=== PATIENT | female | born 1990 | race African-American/Black ===

== ENCOUNTER 2019-11-02 16:39 | Emergency (ER) | payer BC ==
[2019-11-02 16:52] VITALS: BP 144/72
[2019-11-02] MEDS ORDERED: LIDOCAINE 1% INJ-PF (10 MG/ML) 30 ML SDV INJ ONE (16:56)
--- NOTE | 2019-11-02 16:58 | ER Document Report ---
ED Medical Screen (RME) - General Chief Complaint: Facial Injury Stated Complaint: FACIAL LACERATION Time Seen by Provider: 11/02/19 16:52 Primary Care Provider: DARLINE SALINAS MD [Primary Care Provider] - Follow up as needed Mode of Arrival: Ambulatory Information source: Patient Notes: HPI; 29-year-old female presents to the emergency room with a laceration to her left outer eye. Patient states she slipped and fell in the bathroom hitting her head on the tub. She denies any loss of consciousness. States her tetanus is up-to-date. States mom tried to put some liquid Band-Aid on it without success. PE: Alert and oriented x3. PERRLA, EOMI, negative for langston signs, negative raccoon eyes. There is a 1 cm laceration noted to the outer area of the left eye. Bleeding is persistent. Dressing was applied. I have greeted and performed a rapid initial assessment of this patient. A comprehensive ED assessment and evaluation of the patient, analysis of test results and completion of the medical decision making process will be conducted by additional ED providers. I have specifically instructed the patient or family members with the patient to immediately return to any nursing staff should anything change in the patient's condition or with their chief complaint. TRAVEL OUTSIDE OF THE [place] IN LAST 30 DAYS: No - Related Data Allergies/Adverse Reactions: No Known Allergies Allergy (Verified 11/02/19 16:52) Past Medical History - Social History Frequency of alcohol use: Occasional Physical Exam - Vital signs Vitals: Temp Pulse Resp BP Pulse Ox 99.1 F 98 19 144/72 H 99 11/02/19 16:51 11/02/19 16:51 11/02/19 16:51 11/02/19 16:51 11/02/19 16:51 Course - Vital Signs Vital signs: Temp Pulse Resp BP Pulse Ox 99.1 F 98 19 144/72 H 99 11/02/19 16:51 11/02/19 16:51 11/02/19 16:51 11/02/19 16:51 11/02/19 16:51 Doctor's Discharge - Discharge Referrals: DARLINE SALINAS MD [Primary Care Provider] - Follow up as needed
--- NOTE | 2019-11-02 19:24 | ER Document Report ---
ED Head/Face/Scalp Injury - General Chief Complaint: Facial Injury Stated Complaint: FACIAL LACERATION Time Seen by Provider: 11/02/19 16:52 Primary Care Provider: DARLINE SALINAS MD [Primary Care Provider] - Follow up as needed Mode of Arrival: Ambulatory Information source: Patient Notes: 29-year-old female with no previous medical problems presents to the emergency room after a slip and fall at home in the bathroom hitting her head on the edge of the tub sustaining a laceration to the left side of her face near her left eye. She denies any loss of consciousness. She denies any headache. She denies any pain. States she attempted to use liquid glue without relief. Bleeding is persistent. Tetanus is up-to-date. TRAVEL OUTSIDE OF THE [place] IN LAST 30 DAYS: No - Related Data Allergies/Adverse Reactions: No Known Allergies Allergy (Verified 11/02/19 16:52) Past Medical History - General Information source: Patient - Social History Smoking Status: Never Smoker Frequency of alcohol use: Occasional Family History: Reviewed & Not Pertinent Review of Systems - Review of Systems Constitutional: No symptoms reported EENT: No symptoms reported Cardiovascular: No symptoms reported Respiratory: No symptoms reported Musculoskeletal: No symptoms reported Skin: Other - Laceration Neurological/Psychological: No symptoms reported -: Yes All other systems reviewed and negative Physical Exam - Vital signs Vitals: Temp Pulse Resp BP Pulse Ox 99.1 F 98 19 144/72 H 99 11/02/19 16:51 11/02/19 16:51 11/02/19 16:51 11/02/19 16:51 11/02/19 16:51 - General General appearance: Appears well, Alert In distress: Mild - HEENT Head: Normocephalic, Open wounds - 1 cm laceration noted to the left side of the face near the eye. Bleeding is persistent.. No: Mojica's sign, Racoon's eyes Conjunctiva: Normal Extraocular movements intact: Yes Pupils: PERRL Ears: Normal External canal: Normal Tympanic membrane: Normal Nasal: Normal Pharynx: Normal Neck: Normal - Respiratory Respiratory status: No respiratory distress Chest status: Nontender Breath sounds: Normal Chest palpation: Normal - Cardiovascular Rhythm: Regular Heart sounds: Normal auscultation Murmur: No - Neurological Neuro grossly intact: Yes Cognition: Normal Orientation: AAOx4 [place] Coma Scale Eye Opening: Spontaneous [place] Coma Scale Verbal: Oriented Elizabeth Coma Scale Motor: Obeys Commands [place] Coma Scale Total: 15 Speech: Normal Motor strength normal: LUE, RUE, LLE, RLE Sensory: Normal - Skin Skin Temperature: Warm Skin Moisture: Dry Skin Color: Normal Course - Re-evaluation Re-evalutation: 11/02/19 19:25 Wound was cleansed and sutured as documented. Patient was counseled on proper wound care. Suture removal 5 to 7 days. Tylenol as needed for pain. Patient was given strict return to the emergency room guidelines. Return for any new or worsening symptoms. All questions were answered. Patient verbalized understanding and agrees with plan of care. - Vital Signs Vital signs: Temp Pulse Resp BP Pulse Ox 99.1 F 98 19 144/72 H 99 11/02/19 16:51 11/02/19 16:51 11/02/19 16:51 11/02/19 16:51 11/02/19 16:51 Procedures - Laceration/Wound Repair Left Face Time completed: 19:21 Wound length (cm): 1 Wound's Depth, Shape: Superficial Laceration pre-procedure: Sterile PPE donned, Sterile drapes applied, Shur-Clens applied Anesthetic type: 1% Lidocaine Volume Anesthetic (mLs): 1 Wound explored: Clean, No foreign body removed Irrigated w/ Saline (mLs): 5 Wound Repaired With: Sutures Suture Size/Type: 6:0, Prolene Number of Sutures: 3 Layer Closure?: No Post-procedure wound care: Other - Band-Aid applied Post-procedure NV exam normal: Yes Complications: No Discharge - Discharge Clinical Impression: Facial laceration Qualifiers: Encounter type: initial encounter Qualified Code(s): S01.81XA - Laceration without foreign body of other part of head, initial encounter Condition: Stable Disposition: HOME, SELF-CARE Instructions: Laceration Care ([facility]) Additional Instructions: Please return to your primary doctor, the ED, or an urgent care in 7 days for suture removal. Return immediately if you develop spreading redness around the wound, pus from the wound, worsening pain, or a fever of >100.4. Keep the area clean and dry. Wash gently with soap and water twice daily pat dry. Referrals: DARLINE SALINAS MD [Primary Care Provider] - Follow up as needed
== END 2019-11-02 19:30 | disposition home or self-care (01) ==
LOC: ER 16:39
DX: S01.112A Laceration without foreign body of left eyelid and periocular area, initial encounter (principal); W01.198A Fall on same level from slipping, tripping and stumbling with subsequent striking against other object, initial encounter; Y93.89 Activity, other specified; Y92.002 Bathroom of unspecified non-institutional (private) residence as the place of occurrence of the external cause
CPT/HCPCS: 99282; 12011; J3490

== ENCOUNTER 2019-11-09 12:32 | Emergency (ER) | payer SELFPAY ==
[2019-11-09 12:37] VITALS: BP 145/89
--- NOTE | 2019-11-09 13:13 | ER Document Report ---
ED Suture/Wound Recheck - General Chief Complaint: Suture Removal Stated Complaint: SUTURE REMOVAL Time Seen by Provider: 11/09/19 13:04 Primary Care Provider: DARLINE SALINAS MD [Primary Care Provider] - Follow up as needed Mode of Arrival: Ambulatory Information source: Patient Notes: 29-year-old female presented to ED for suture removal to the left side of her face just beside her eye. She states she had the sutures placed a week ago. She states she fell in the shower causing a laceration to the left side of her face. It was exactly a week ago today. She is alert oriented respirations regular nonlabored speaking in full sentences. Laceration is well-healed. No redness no inflammation no drainage and no pain. Sutures will be removed and she will be sent home. TRAVEL OUTSIDE OF THE [place] IN LAST 30 DAYS: No - HPI Previous ED treatment: Laceration repair Quality of pain: No pain Severity: None Pain Level: Denies Context: Injury Symptoms since procedure: No complaints Exacerbated by: Denies Relieved by: Denies - Related Data Allergies/Adverse Reactions: No Known Allergies Allergy (Verified 11/02/19 16:52) Past Medical History - General Information source: Patient - Social History Smoking Status: Never Smoker Frequency of alcohol use: Occasional Drug Abuse: None Family History: Reviewed & Not Pertinent - Past Medical History Cardiac Medical History: Reports: None Pulmonary Medical History: Reports: None EENT Medical History: Reports: None Neurological Medical History: Reports: None Endocrine Medical History: Reports: None Renal/ Medical History: Reports: None Malignancy Medical History: Reports: None GI Medical History: Reports: None Musculoskeletal Medical History: Reports None Skin Medical History: Reports None Psychiatric Medical History: Reports: None Traumatic Medical History: Reports: None Infectious Medical History: Reports: None Surgical Hx: Negative Past Surgical History: Reports: None - Immunizations Hx Diphtheria, Pertussis, Tetanus Vaccination: Yes Review of Systems - Review of Systems Constitutional: No symptoms reported EENT: No symptoms reported Cardiovascular: No symptoms reported Respiratory: No symptoms reported Gastrointestinal: No symptoms reported Genitourinary: No symptoms reported Female Genitourinary: No symptoms reported Musculoskeletal: No symptoms reported Skin: Other - Sutures to the left side of face just lateral to the eye. Skin well-healed. Well approximated, no redness no inflammation no drainage Hematologic/Lymphatic: No symptoms reported Neurological/Psychological: No symptoms reported -: Yes All other systems reviewed and negative Physical Exam - Vital signs Vitals: Temp Pulse Resp BP Pulse Ox 98.3 F 82 20 145/89 H 98 11/09/19 12:36 11/09/19 12:36 11/09/19 12:36 11/09/19 12:36 11/09/19 12:36 Interpretation: Normal - General General appearance: Appears well, Alert - HEENT Head: Other - Well-healing laceration to the left side of the face just beside the eye no redness no drainage no tenderness Eyes: Normal Pupils: PERRL - Respiratory Respiratory status: No respiratory distress Chest status: Nontender Breath sounds: Normal Chest palpation: Normal - Cardiovascular Rhythm: Regular Heart sounds: Normal auscultation Murmur: No - Abdominal Inspection: Normal Distension: No distension Bowel sounds: Normal Tenderness: Nontender Organomegaly: No organomegaly - Back Back: Normal, Nontender - Extremities General upper extremity: Normal inspection, Nontender, Normal color, Normal ROM, Normal temperature General lower extremity: Normal inspection, Nontender, Normal color, Normal ROM, Normal temperature, Normal weight bearing. No: Telma's sign - Neurological Neuro grossly intact: Yes Cognition: Normal Orientation: AAOx4 [place] Coma Scale Eye Opening: Spontaneous Elizabeth Coma Scale Verbal: Oriented [place] Coma Scale Motor: Obeys Commands [place] Coma Scale Total: 15 Speech: Normal Motor strength normal: LUE, RUE, LLE, RLE Sensory: Normal - Psychological Associated symptoms: Normal affect, Normal mood - Skin Skin Temperature: Warm Skin Moisture: Dry Skin Color: Normal Skin irregularity: Laceration - Well-healed laceration to the left side of the face just beside the eye 3 sutures intact with these will be removed. No redness no tenderness no signs of inflammation or infection. Location of irregularity: Face Course - Vital Signs Vital signs: Temp Pulse Resp BP Pulse Ox 98.3 F 82 20 145/89 H 98 11/09/19 12:36 11/09/19 12:36 11/09/19 12:36 11/09/19 12:36 11/09/19 12:36 Discharge - Discharge Clinical Impression: Encounter for removal of sutures Condition: Stable Disposition: HOME, SELF-CARE Instructions: Suture Removal Additional Instructions: SOAP CLEANSING: Gently wash the wound daily using a mild soap (like Ivory, Phisoderm, Neutrogena). Use warm water, rubbing gently until all debris, ooze, and crusting have been washed from the wound. Allow to dry briefly (about 10 minutes) after cleaning. Repeat this cleansing at least three times a day for the first two days and then once or twice a day. ANTIBIOTIC OINTMENT PROTECTION: Your wounds are such that dressing them is not practical or optional. After cleansing, you should apply a thin coating of antibiotic ointment (Bacitracin, not Neosporin) to the wounds at least three times daily. This lessens infection risk, and may decrease the amount of scarring. Use a q-tip or dull butter knife, not your finger, to apply this ointment. Any debris or ooze which builds up in the ointment should be gently rubbed off with a sterile gauze pad. Harder crusting may need to be gently scrubbed off with a clean wash cloth with soap and warm water, perhaps applying a warm, wet wash cloth to the wound for ten minutes first. Development of redness, severe itching, or blistering may mean allergy to the ointment. See the doctor. FOLLOW-UP CARE: If you have been referred to a physician for follow-up care, call the physicians office for an appointment as you were instructed or within the next two days. If you experience worsening or a significant change in your symptoms, notify the physician immediately or return to the Emergency Department at any time for re-evaluation. Forms: Elevated Blood Pressure Referrals: DARLINE SALINAS MD [Primary Care Provider] - Follow up as needed
== END 2019-11-09 13:25 | disposition home or self-care (01) ==
LOC: ER 12:32
DX: S01.81XD Laceration without foreign body of other part of head, subsequent encounter (principal); W18.2XXD Fall in (into) shower or empty bathtub, subsequent encounter